=== PATIENT | female | born 1990 | race American Indian/Alaskan Native ===

== ENCOUNTER 2019-11-16 13:05 | Emergency (ER) | payer OTHER ==
[2019-11-16 13:17] VITALS: BP 140/90
--- NOTE | 2019-11-16 13:58 | Emergency Department Report ---
ED General Adult HPI - General Chief complaint: Extremity Problem,Nontraumatic Stated complaint: SEIZURE LIKE ACTIVITY Time Seen by Provider: 11/16/19 13:53 Source: patient Mode of arrival: Stretcher Limitations: No Limitations - History of Present Illness Initial comments: 29-year-old obese female presents to the emergency room stating that she is has muscle spasms shaking and seizure-like activity since of last week. Patient states that this started in [place] when she was seen in the ER and had a CT scan which she reports was negative. Patient states since then she has had several episodes daily. Patient states that she does live here in [place]. Patient reports that his full muscle spasm that was started in her left arm and radiated up and over to the opposite arm with tingling in her feet and hands. Patient states that she is followed by Dr. Pena at [facility]. Patient reports she has a history of rheumatoid arthritis and is allergic to Humira it gave her a reaction to her right side of her arms with tingling and numbness. Patient reports that she is on control which is Nexplanon in her left arm. Patient states these episodes she is never wet herself or lost consciousness. Patient states she has not hit her head. Patient states during the episode she will have difficulty breathing and she calm her self down and it would improve. Patient does admit to doing cocaine and smoking weed last Friday. Patient states she has no nausea vomiting or diarrhea. Patient states that her appetite is decreased but she is voiding well. Patient denies any primary care provider. Onset/Timin -: days(s) Location: upper extremity Radiation: extremity, abdomen Severity scale (0 -10): 0 Consistency: intermittent Improves with: other (Deep breaths) Worsens with: movement (To fast) Associated Symptoms: denies: confusion, chest pain, cough, diaphoresis, fever/chills, malaise, nausea/vomiting Treatments Prior to Arrival: none - Related Data Previous Rx's Medication Instructions Recorded Last Taken Type Cyclobenzaprine [Flexeril 10mg] 10 mg PO Q12H PRN #14 tablet 03/27/18 Unknown Rx Ibuprofen [Motrin] 600 mg PO Q8H PRN #12 tablet 03/27/18 Unknown Rx ALPRAZolam [Xanax TAB] 0.5 mg PO BID PRN #6 tab 11/16/19 Unknown Rx Nitrofurantoin Avery/M-Cryst 100 mg PO Q12HR 7 Days #14 capsule 11/16/19 Unknown Rx [Macrobid CAP] Allergies Allergy/AdvReac Type Severity Reaction Status Date / Time No Known Allergies Allergy Verified 11/16/19 13:13 ED Review of Systems ROS: Stated complaint: SEIZURE LIKE ACTIVITY Other details as noted in HPI ED Past Medical Hx - Past Medical History Previous Medical History?: Yes Hx Arthritis: Yes (RA) - Social History Smoking Status: Never Smoker Substance Use Type: Marijuana - Medications Home Medications: Home Medications Medication Instructions Recorded Confirmed Last Taken Type Cyclobenzaprine [Flexeril 10mg] 10 mg PO Q12H PRN #14 tablet 03/27/18 Unknown Rx Ibuprofen [Motrin] 600 mg PO Q8H PRN #12 tablet 03/27/18 Unknown Rx ALPRAZolam [Xanax TAB] 0.5 mg PO BID PRN #6 tab 11/16/19 Unknown Rx Nitrofurantoin Avery/M-Cryst 100 mg PO Q12HR 7 Days #14 capsule 11/16/19 Unknown Rx [Macrobid CAP] ED Physical Exam - General Limitations: No Limitations General appearance: alert - Head Head exam: Present: atraumatic - Eye Eye exam: Present: normal appearance, PERRL, EOMI - ENT ENT exam: Present: mucous membranes moist - Respiratory Respiratory exam: Present: normal lung sounds bilaterally. Absent: respiratory distress - Cardiovascular Cardiovascular Exam: Present: regular rate, normal rhythm. Absent: systolic murmur, diastolic murmur, rubs, gallop - GI/Abdominal GI/Abdominal exam: Present: soft. Absent: distended, tenderness, guarding - Neurological Exam Neurological exam: Present: alert, oriented X3 - Expanded Neurological Exam Expanded Patient oriented to: Present: person, place, time Cranial nerves: EOM's Intact: Normal, Gag Reflex: Normal, Tongue Deviation: Normal, Nystagmus: Normal, Facial Sensation: Normal, Facial Palsy with Forehead Movement: Normal, Facial Palsy without Forehead Movement: Normal Cerebellar function: Finger to Nose: Normal, Heel to Watson: Normal, Romberg: Normal Upper motor neuron: Vijay Neglect: Normal, Pronator Drift: Normal, Sensory Extinction: Normal Sensory exam: Upper Extremity Light Touch: Normal, Upper Extremity Pin Prick: Normal, Upper Extremity Temperature: Normal, UE 2 Point Discrimination: Normal, Lower Extremity Light Touch: Normal, Lower Extremity Pin Prick: Normal, Lower Extremity Temperature: Normal, LE 2 Point Discrimination: Normal Motor strength exam: RUE: 4, LUE: 4, RLE: 4, LLE: 4 Best Eye Response ([place]): (4) open spontaneously Best Motor Response (Huey): (6) obeys commands Best Verbal Response ([place]): (5) oriented Huey Total: 15 - Psychiatric Psychiatric exam: Present: normal affect, normal mood - Skin Skin exam: Present: warm, dry, intact, normal color. Absent: rash ED Course Vital Signs 11/16/19 13:13 Temperature 98.9 F Pulse Rate 78 Respiratory 16 Rate Blood Pressure 140/90 O2 Sat by Pulse 98 Oximetry ED Medical Decision Making - Lab Data Result diagrams: 11/16/19 14:30 11/16/19 14:30 - Medical Decision Making 29-year-old obese female presents to the emergency room stating that she is has muscle spasms shaking and seizure-like activity since of last week. Patient states that this started in [place] when she was seen in the ER and had a CT scan which she reports was negative. Patient states since then she has had several episodes daily. Patient states that she does live here in [place]. Patient reports that his full muscle spasm that was started in her left arm and radiated up and over to the opposite arm with tingling in her feet and hands. P atient states that she is followed by Dr. Pena at [facility]. Patient reports she has a history of rheumatoid arthritis and is allergic to Humira it gave her a reaction to her right side of her arms with tingling and numbness. Patient reports that she is on control which is Nexplanon in her left arm. Patient states these episodes she is never wet herself or lost consciousness. Patient states she has not hit her head. Patient states during the episode she will have difficulty breathing and she calm her self down and it would improve. Patient does admit to doing cocaine and smoking weed last Friday. Patient states she has no nausea vomiting or diarrhea. Patient states that her appetite is decreased but she is voiding well. Patient denies any primary care provider. CBC CMP magnesium UDS UA salicylate blood alcohol and acetaminophen. Brand Executive yelled for me to evaluate patient as she had pushed the call button and then started straining her arms out with her fist lateral. Revealed labs positive THC in urine, will treat patient for urinary tract infection as she has 11 WBCs with 4+ bacteria. Recommend patient to follow-up with her neurologist Dr. Pena. Critical care attestation.: If time is entered above; I have spent that time in minutes in the direct care of this critically ill patient, excluding procedure time. ED Disposition Clinical Impression: Muscle spasm, Mild tetrahydrocannabinol (THC) abuse, Cocaine use, Anxiety, Severely overweight Disposition: DC-01 TO HOME OR SELFCARE Is pt being admited?: No Does the pt Need Aspirin: No Condition: Stable Instructions: Anxiety (ED), Medicinal Use of Cannabis (ED), Muscle Spasm (ED), Obesity (ED) Additional Instructions: Complete antibiotics as prescribed for your urinary tract infection. Take Xanax for your anxiety. Follow-up with Dr. Pena your neurologist in the next 3 to 5 days. Follow-up with a primary care provider. Restrain from using drugs. Prescriptions: Nitrofurantoin Avery/M-Cryst [Macrobid CAP] 100 mg PO Q12HR 7 Days #14 capsule ALPRAZolam [Xanax TAB] 0.5 mg PO BID PRN #6 tab PRN Reason: Anxiety Referrals: PRIMARY MD TEODORA [Primary Care Provider] - 3-5 Days PHANI PENA MD [Staff Physician] - 3-5 Days
[2019-11-16 14:41] LABS: Basophils % (Auto) 0.4 % (0.0-1.8); Eosinophils # (Auto) 0.1 K/mm3 (0.0-0.4); Eosinophils % (Auto) 1.4 % (0.0-4.3); Hematocrit 44.3 % (30.3-42.9); Hemoglobin 13.7 gm/dl (10.1-14.3); Lymphocytes # (Auto) 1.4 K/mm3 (1.2-5.4); Lymphocytes % (Auto) 15.2 % (13.4-35.0); Mean Corpuscular HGB Conc 31 % (30-34); Mean Corpuscular Volume 85 fl (79-97); Monocytes # (Auto) 0.7 K/mm3 (0.0-0.8); Monocytes % (Auto) 7.3 % (0.0-7.3); Platelet Count 325 K/mm3 (140-440); Red Blood Count 5.22 M/mm3 (3.65-5.03); Red Cell Distribution Width 17.1 % (13.2-15.2)
[2019-11-16 15:03] LABS: Alanine Aminotransferase 17 units/L (7-56); Albumin 3.9 g/dL (3.9-5); BUN/Creatinine Ratio 8; Blood Urea Nitrogen 7 mg/dL (7-17); Calcium 9.6 mg/dL (8.4-10.2); Hemolysis Index 23
[2019-11-16 16:46] LABS: Bacteria,Urine 4+ /HPF (Negative); Bilirubin,Urine NEG (Negative); Blood,Urine MOD (Negative); Color,Urine Yellow (Yellow); Hyaline Casts,Urine 3 /LPF; Mucus,Urine 2+ /HPF; Urobilinogen,Urine < 2.0 mg/dL (<2.0)
[2019-11-16 16:51] LABS: Amphetamine Screen,Urine PRESUMPTIVE NEGATIVE; Benzodiazepines Screen,Urine PRESUMPTIVE NEGATIVE; Cocaine Screen,Urine PRESUMPTIVE NEGATIVE; Methadone Screen,Urine PRESUMPTIVE NEGATIVE; Opiate Screen,Urine PRESUMPTIVE NEGATIVE
[2019-11-16 17:17] LABS: Cannabinoid Screen,Urine PRESUMPTIVE POSITIVE
== END 2019-11-16 18:33 | disposition home or self-care (01) ==
LOC: ED 13:05
DX: M62.838 Other muscle spasm (principal); F15.10 Other stimulant abuse, uncomplicated; F14.10 Cocaine abuse, uncomplicated; M13.88 Other specified arthritis, other site; F12.10 Cannabis abuse, uncomplicated; F41.9 Anxiety disorder, unspecified; E66.01 Morbid (severe) obesity due to excess calories; Z68.42 Body mass index [BMI] 45.0-49.9, adult; Z79.899 Other long term (current) drug therapy
CPT/HCPCS: 36415; 80053; 80307; 80320; 81001; 83735; 85025; 87086; G0480